=== PATIENT | male | born 1980 | race Caucasian/White ===

== ENCOUNTER → 2023-04-20 09:18 | Outpatient (CLI) | payer OTHER, SELFPAY ==
--- NOTE | 2023-04-20 | DI.RAD.S_ITS ---
PROCEDURE: FL UPPER GI SERIES INDICATIONS: Dysphagia, unspecified COMPARISON: None. FINDINGS: KUB: Preprocedural biochemistry specialist film demonstrates a normal bowel gas pattern. No suspicious abdominal calcifications. Visualized solid organ contours appear normal. Bony structures appear unremarkable. Esophagus: Esophageal mucosa is normal on air-contrast views. On single-contrast views, there is normal esophageal peristalsis. No strictures, extrinsic mass effects, or diverticula. No hiatal hernia or elicited gastroesophageal reflux. There is normal transit of a calibrated barium tablet through the esophagus. Stomach: The stomach is normally distensible, with normal rugal fold thickness. No mucosal masses or ulcers. Pylorus and duodenal bulb appear normal in morphology. IMPRESSION: Normal esophagram. No hiatal hernia, strictures or gastroesophageal reflux visualized. Dictated by: Bettye Rothman M.D. on 04/20/2023 at 18:38 Approved by: Bettye Rothman M.D. on 04/20/2023 at 18:41
== END ==
DX: R13.10 Dysphagia, unspecified (principal)
CPT/HCPCS: 74240

== ENCOUNTER → 2024-03-15 12:44 | Outpatient (CLI) | payer OTHER, SELFPAY ==
--- NOTE | 2024-03-15 12:47 | DI.RAD.S_ITS ---
PROCEDURE: XR ANKLE LT MIN 3V INDICATIONS: ANKEL PAIN TECHNIQUE: 3 views of the ankle were acquired. COMPARISON: None. FINDINGS: Bones: No acute fracture or dislocation. Surgical screws within the distal tibia. Ankle mortise is intact. No suspicious bony lesions. Soft tissues: No tibiotalar joint effusion. Achilles tendon appears normal. IMPRESSION: Postsurgical screws within the distal tibia without acute osseous abnormality. Dictated by: Chris Lorenzana M.D. on 03/15/2024 at 15:45 Approved by: Chris Lorenzana M.D. on 03/15/2024 at 15:46
== END ==
PROVIDERS: Referring Provider Chiropractor; Visit Provider Chiropractor
DX: S92.102A Unspecified fracture of left talus, initial encounter for closed fracture (principal)
CPT/HCPCS: 73610

== ENCOUNTER → 2024-07-04 11:27 | Outpatient (CLI) | payer OTHER, SELFPAY | PROVIDERS: Referring Provider Chiropractor; Visit Provider Chiropractor | DX: J18.9 Pneumonia, unspecified organism (principal); R94.2 Abnormal results of pulmonary function studies | CPT/HCPCS: 94060 ==

== ENCOUNTER 2024-07-15 23:53 | Emergency (ER) | payer OTHER, SELFPAY ==
--- NOTE | 2024-07-16 00:02 | DI.RAD.S_ITS ---
PROCEDURE: XR ANKLE RT MIN 3V INDICATIONS: injury TECHNIQUE: 3 views of the ankle were acquired. COMPARISON: [facility], CR, XR ANKLE LT MIN 3V, 03/15/2024, 12:51. FINDINGS: Bones: No fractures or dislocations. Ankle mortise is normally aligned. No suspicious bony lesions. Soft tissues: No tibiotalar joint effusion. Achilles tendon appears normal. IMPRESSION: No acute osseous abnormality. If pain persists with conservative management, consider repeat x-ray in 10-14 days or cross-sectional imaging. Dictated by: Bernardino Kay M.D. on 07/16/2024 at 0:23 Approved by: Bernardino Kay M.D. on 07/16/2024 at 0:24
[2024-07-16 00:03] VITALS: BP 150/78; PULSE 72; RESP 18; TEMP 36.4; O2SAT 98; BMI 33.5
--- NOTE | 2024-07-16 02:53 | ED.LOWEXIN ---
HPI - Extremity Injury (Lower) General Chief Complaint: Extremity Injury, Lower Stated Complaint: twisted rt ankle swollen Time Seen by Provider: 07/16/24 02:53 Source: patient Mode of arrival: Wheelchair History of Present Illness HPI Narrative: 44-year-old male without any significant past medical history presents to the emergency department for right ankle pain, states it is his lateral malleolus, states that he was going down the steps of his house missed the last 2 steps felt like he twisted his ankle. Was able to stand bear weight walk however after about an hour to swelling pain increased in decided come into the ED for further evaluation treatment he did not fall did not hit his head denies any other injury or trauma. Not on any blood thinners Related Data Previous Rx's Medication Instructions Recorded naproxen 500 mg tablet (Naprosyn) 500 mg PO BID PRN pain 1 week #14 07/16/24 tabs Allergies Allergy/AdvReac Type Severity Reaction Status Date / Time No Known Drug Allergies Allergy Verified 07/16/24 00:06 Review of Systems Review of Systems Narrative: General: Denies fever, chills, weight loss HEENT: Denies headache, eye drainage, eye irritation, head trauma, sore throat, voice change Cardiovascular: Denies any chest pain, palpitations, shortness of breath, tachycardia Respiratory: Denies any shortness of breath, cough, wheeze, stridor GI/: Denies any abdominal pain, nausea, vomiting, diarrhea, bright red blood per rectum, melanotic stools, urinary frequency, urinary retention, dysuria, hematuria MSK: Positive right ankle pain Skin: Denies any rashes, lesions, discoloration Neuro: Denies any headache, lightheadedness, dizziness, fainting, weakness Psych: Denies SI/HI Exam Narrative Exam Narrative: General: Cooperative, comfortable, well-developed, not in acute distress HEENT: Normocephalic, atraumatic, PERRLA, normal sclera, eyelids normal, Neck: Active full range of motion, atraumatic Chest: Normal to inspection, negative crepitus, no overlying erythema ecchymosis Respiratory: Normal respiratory effort, not in acute respiratory distress, clear to auscultation bilaterally negative cough, wheeze, tachypnea, rhonchi, rales Cardiology: Regular rate rhythm negative gallop, murmur, rubs GI/: Normal to inspection, soft, nonrigid, no tenderness to palpation, exam deferred MSK: Bilateral lower extremities neurovascularly intact, no crepitus, patient with tenderness to palpation of the lateral malleolus no gross deformities noted Skin: No rashes lesions noted Neuro: Alert awake oriented x3, moves all 4 extremities spontaneously, cranial nerves intact, able to answer all questions appropriately follows commands appropriately Psych: Cooperative, negative suicidal or homicidal ideations Initial Vital Signs Initial Vital Signs: Vital Signs Temperature 97.6 F 07/16/24 00:03 Pulse Rate 72 07/16/24 00:03 Respiratory Rate 18 07/16/24 00:03 Blood Pressure 150/78 H 07/16/24 00:03 Pulse Oximetry 98 07/16/24 00:03 Oxygen Delivery Method Room Air 07/16/24 00:03 Course Orders Ordered: ED Orders 07/16/24 00:02 XR ankle RT min 3V Stat Vital Signs Vital signs: Vital Signs - 8 hr 07/16/24 00:03 Temperature 97.6 F Pulse Rate 72 Respiratory Rate 18 Blood Pressure 150/78 H Pulse Oximetry 98 Oxygen Delivery Method Room Air MDM - Extremity Injury (Lower) Differential Diagnosis Differential diagnosis: Likely ankle sprain and strain and ankle fracture Imaging Data Extremity x-ray #1: Radiologist's Impression: [address] [address] XRay Report Signed Patient: Brent Turner MR#: [id number] : 1980 Acct:[id number] Age/Sex: 44 / M Date of Service: 07/16/24 Loc: ED Accession Number: [id number] Procedure: XR ankle RT min 3V Ordering Provider: Robert Sanabria D.O. PROCEDURE: XR ANKLE RT MIN 3V INDICATIONS: injury TECHNIQUE: 3 views of the ankle were acquired. COMPARISON: [facility], [facility], XR ANKLE LT MIN 3V, 03/15/2024, 12:51. FINDINGS: Bones: No fractures or dislocations. Ankle mortise is normally aligned. No suspicious bony lesions. Soft tissues: No tibiotalar joint effusion. Achilles tendon appears normal. IMPRESSION: No acute osseous abnormality. If pain persists with conservative management, consider repeat x-ray in 10-14 days or cross-sectional imaging. [facility] Narrative Medical decision making narrative: 44-year-old male without any significant past medical history presents for right ankle pain after missing the last 2 steps of his stairs at home. No fall no head strike not on blood thinners was able to stand bear weight ambulate after but due to persistent pain and swelling to the right lateral malleolus he decided to come into the ED for further IP treatment. On exam neurovascularly intact minor tenderness to palpation of the right malleolus but no gross deformity. X-ray without any acute fracture. Patient will be placed in ankle support crutches and sent home with symptomatic relief. He was instructed follow up with primary care and orthopedic surgery in outpatient setting he verbalized understanding of this and agrees to being discharged home with outpatient follow up Discharge Plan Departure Patient Disposition: Home Clinical Impression: Acute right ankle pain Instructions: How to Use Crutches, DI for Ankle Sprain Activity Restrictions/Additional Instructions: Please follow up with primary Care and orthopedic surgery in outpatient setting Please read the discharge instructions sheet carefully and bring all papers to all doctor follow-up visits, as it may contain information that your doctor may want to see. Disease processes change and evolve, if your symptoms worsen or if you develop any new symptoms that are concerning to you please return for evaluation. Your evaluation today does not show any evidence of any life-threatening/serious illnesses requiring admission to the hospital or surgery. Please follow-up with your doctor for re-evaluation in approximately 1 day. Seek immediate medical attention for any worrisome symptoms. *If you do not have a primary care provider please contact the [facility] Resource line at [phone]. They will ask some questions about your medical history and help get you set up with a doctor in the community. Prescriptions: New naproxen [Naprosyn] 500 mg tablet 500 mg PO BID PRN (Reason: pain) 7 Days Qty: 14 0RF Stand Alone Forms: Patient Portal/API/Survey
[2024-07-16 02:54] VITALS: BP 124/82; PULSE 61; RESP 14; O2SAT 99
[2024-07-16] MEDS: NAPROXEN 250 MG TABLET 500 MG PO (03:08)
== END 2024-07-16 03:20 | disposition home or self-care (01) ==
PROVIDERS: Emergency Provider Student in an Organized Health Care Education/Training Program
DX: M25.571 Pain in right ankle and joints of right foot (principal); X50.1XXA Overexertion from prolonged static or awkward postures, initial encounter
CPT/HCPCS: 73610; 99283